=== PATIENT | female | born 1985 | race Two or more races ===

== ENCOUNTER 2022-09-29 10:38 | Emergency (ER) | payer MEDICAID, OTHER ==
[~2022-09-29] VITALS: Ht 160 cm; Wt 74.4 kg
[2022-09-29 10:50] VITALS: BP 154/100
--- NOTE | 2022-09-29 11:23 | NUR ---
DR OLMEDO AT BEDSIDE FOR EVAL.
[2022-09-29] MEDS ORDERED: NAPR-1192 PO (12:36)
== END 2022-09-29 12:50 | disposition home or self-care (01) ==
LOC: ER 11:12
DX: S63.592A Other specified sprain of left wrist, initial encounter (principal); Z79.899 Other long term (current) drug therapy; Z88.1 Allergy status to other antibiotic agents; V89.2XXA Person injured in unspecified motor-vehicle accident, traffic, initial encounter; Y93.89 Activity, other specified; Y92.410 Unspecified street and highway as the place of occurrence of the external cause; Y99.8 Other external cause status
CPT/HCPCS: 71045-TC; 73110